=== PATIENT | male | born 1960 | race Asian ===

== ENCOUNTER 2018-04-13 08:18 | Day surgery (SDC) | payer BC ==
[~2018-04-13] VITALS: Ht 180.3 cm; Wt 72.2 kg
[~2018-04-13 08:18] MED LIST: PREDNISONE20 MG PO; SYNTHROID0.112 MG/T PO
[2018-04-13 08:31] VITALS: BP 118/81; PULSE 63; TEMP 97
[2018-04-13 09:20] VITALS: BP 79/51; PULSE 65; TEMP 97.5
--- NOTE | 2018-04-13 09:20 | NUR ---
Pt to [facility] via cart. Pt awake and alert. Pt ambulates to recliner with stand by assistance. Warm blankets given. in room. Pt denies pain or nausea. Muffin and water given per pt request. Will continue to monitor. Call light within reach.
[2018-04-13 09:35] VITALS: BP 93/66; PULSE 68
--- NOTE | 2018-04-13 09:35 | NUR ---
Pt continues to rest. Tolerating muffins and water without difficulties. Will continue to monitor. Call light within reach.
[2018-04-13 09:50] VITALS: BP 87/61; PULSE 62
--- NOTE | 2018-04-13 09:50 | NUR ---
Pt continues to rest. Denies needs. Call light within reach.
[2018-04-13 10:05] VITALS: BP 90/66; PULSE 52
--- NOTE | 2018-04-13 10:05 | NUR ---
Pt continues to rest. Denies needs. Call light within reach.
--- NOTE | 2018-04-13 10:30 | NUR ---
Discharge instructions reviewed. Pt voices understanding. IV site discontinued with all parts intact. Pt up to dress with assistance from . Call light within reach.
--- NOTE | 2018-04-13 10:45 | NUR ---
Pt escorted to private car via wheel chair. Pt accompanied home by his .
== END 2018-04-13 10:45 | disposition home or self-care (01) ==
LOC: SDCO 08:18
DX: Z12.11 Encounter for screening for malignant neoplasm of colon (principal); D12.2 Benign neoplasm of ascending colon; K63.5 Polyp of colon; Z86.010 Personal history of colon polyps
CPT/HCPCS: OP; J2250; J2405; J3010; J7030

== ENCOUNTER → 2020-07-13 | Outpatient (CLI) | payer BC | LOC: COL.LAB 12:20 | DX: J30.1 Allergic rhinitis due to pollen (principal) ==